=== PATIENT | female | born 1985 | race Caucasian/White ===

== ENCOUNTER → 2017-04-07 | Outpatient (CLI) | payer BC ==
[~2017-04-07] MED LIST: ALPR0.5T PO; HYDR-34 PO; LORA0.5T PO; ONDA4TAB11 PO
--- NOTE | 2017-04-07 14:33 | Diagnostic Imaging Report ---
PROCEDURE: US abdomen complete. TECHNIQUE: Multiple real-time grayscale images were obtained over the abdomen in various projections. INDICATION: Right upper quadrant pain. FINDINGS: The pancreas is largely obscured by bowel gas. The liver is fairly homogeneous without focal lesion seen. There is hepatopetal flow in the portal vein. The CBD is obscured. The spleen is 11.4 cm in length. The abdominal aorta and IVC, visualized portions, appear unremarkable. The gallbladder demonstrates no stones or wall thickening. No pericholecystic fluid is seen. The right kidney is 8.4 and the left kidney is 8.6 cm in length. No hydronephrosis or focal lesion. There is no ascites or fluid collection identified. Area of palpable lump in the mid abdomen is scanned with no definitive abnormality seen. IMPRESSION: Unremarkable exam. Dictated by: Dictated on workstation # [id number]
== END ==
LOC: RAD 08:21
PROVIDERS: ATTEND Family Medicine
DX: R10.11 Right upper quadrant pain (principal); R10.13 Epigastric pain
CPT/HCPCS: 76700

== ENCOUNTER → 2018-01-20 | Outpatient (CLI) | payer BC ==
--- NOTE | 2018-01-20 09:43 | Diagnostic Imaging Report ---
INDICATION: Chest tightness and congestion. TIME OF EXAMINATION: 09:56 a.m. COMPARISON: Correlation is made with prior study from 12/16/2013. FINDINGS: The heart size is normal. The pulmonary vascularity is unremarkable. The lungs are clear. No infiltrate, effusion or pneumothorax is detected. IMPRESSION: No acute cardiopulmonary process is detected. Dictated by: Dictated on workstation # [id number]
== END ==
LOC: RAD 09:10
PROVIDERS: ATTEND Family Medicine
DX: J40 Bronchitis, not specified as acute or chronic (principal)
CPT/HCPCS: 71046

== ENCOUNTER → 2018-02-01 | Outpatient (CLI) | payer BC ==
[~2018-02-01] MED LIST changes: +CATHETER FLUSH 10 ML SYR IV PRN; +IOHEXOL 350 MG/ML 150 ML (OMNIPAQUE 350) VIAL IV ONE; +NS 250 ML (IVPB) BAG IV ONE
--- NOTE | 2018-02-01 15:18 | Diagnostic Imaging Report ---
PROCEDURE: CT angiography of the chest with contrast. TECHNIQUE: Multiple contiguous axial images were obtained through the chest after uneventful bolus administration of intravenous contrast. Reconstructed CTA MIP acquisitions were also performed. INDICATION: Chest pain, shortness of breath, chest pressure, symptoms of 6 weeks duration. FINDINGS: There are no intraluminal pulmonary arterial filling defects. There is no finding suggestive of CT angiographic evidence for pulmonary arterial embolus. The thoracic aorta is patent and nonaneurysmal. The lungs are clear. No mass or lymphadenopathy. No effusion or pneumothorax. No acute or suspicious soft tissue or osseous chest wall pathology. The visualized upper abdomen is nonacute. IMPRESSION: Negative for PE or other acute appearing abnormalities. Dictated by: Dictated on workstation # [id number]
== END ==
LOC: RAD 13:37
PROVIDERS: ATTEND Family Medicine
DX: R07.89 Other chest pain (principal); R06.02 Shortness of breath
CPT/HCPCS: 71275

== ENCOUNTER → 2018-09-28 | Outpatient (CLI) | payer BC ==
[~2018-09-28] MED LIST changes: -CATHETER FLUSH 10 ML SYR IV PRN; -IOHEXOL 350 MG/ML 150 ML (OMNIPAQUE 350) VIAL IV ONE; -NS 250 ML (IVPB) BAG IV ONE
--- NOTE | 2018-09-28 21:22 | Diagnostic Imaging Report ---
INDICATION: Lump in the upper-outer left breast as well as right nipple pain. No prior mammograms are available for comparison. 2-D and 3-D bilateral diagnostic mammography was performed with computer-aided detection (CAD) system. FINDINGS: Both breasts are heterogeneously dense, limiting the sensitivity of mammography. No mass or malignant-appearing microcalcifications are seen. Specifically, no abnormality at the area of the BB marker is identified. The axillae are unremarkable. IMPRESSION: No mammographic features suspicious for malignancy are identified. Even so, directed sonographic interrogation of the upper-outer left breast at the area of palpable abnormality as well as the retroareolar right breast is recommended and will be performed today. ACR BI-RADS Category 0: Incomplete. (Needs additional imaging evaluation). Result letter will be mailed to the patient. Note: At least 10% of breast cancer is not imaged by mammography. Dictated by: Dictated on workstation # [id number]
--- NOTE | 2018-09-28 21:25 | Diagnostic Imaging Report ---
INDICATION: Left breast lump and right nipple pain. Correlation is made with diagnostic mammogram earlier the same day. FINDINGS: Sonographic interrogation of the area of lump in the upper-outer left breast was performed. No sonographic abnormality is seen. No solid or cystic mass is identified. In addition, the retroareolar right breast was evaluated. No underlying abnormality is seen. IMPRESSION: No sonographic abnormality is seen. Continued close clinical and self breast exam is recommended to confirm stability. ACR BI-RADS Category 1: Negative. Dictated by: Dictated on workstation # [id number]
== END ==
LOC: RAD 08:30
PROVIDERS: ATTEND Family Medicine
DX: N63.21 Unspecified lump in the left breast, upper outer quadrant (principal)
CPT/HCPCS: 76642; 77066

== ENCOUNTER → 2018-11-06 | Outpatient (CLI) | payer BC ==
--- NOTE | 2018-11-06 12:26 | Diagnostic Imaging Report ---
PROCEDURE: US Thyroid. TECHNIQUE: Multiple real-time grayscale images were obtained of the thyroid in various projections. INDICATION: Right neck swelling. COMPARISON: No prior studies are available for comparison. FINDINGS: The right lobe of the thyroid measures 4.4 x 1.6 x 1.2 cm, and the left lobe measures 3.3 x 1.4 x 1.4 cm. There is a tiny approximately 3 mm cyst in the right lobe. No other thyroid mass is seen. No dominant thyroid mass is seen. Superior to the right lobe of the thyroid at the area of patient's palpable fullness is a lymph node measuring 1.4 x 2.0 x 0.7 cm. This is just lateral to the submandibular gland. No other abnormalities are seen. IMPRESSION: 1. No dominant thyroid mass is identified. 2. Mildly enlarged lymph node superior to the right lobe of the thyroid lateral to the submandibular gland, likely accounting for the area of fullness. Dictated by: Dictated on workstation # [id number]
== END ==
LOC: RAD 11:22
PROVIDERS: ATTEND Family Medicine
DX: R59.0 Localized enlarged lymph nodes (principal)
CPT/HCPCS: 76536

== ENCOUNTER → 2018-11-10 | Outpatient (CLI) | payer BC ==
--- NOTE | 2018-11-10 13:45 | Diagnostic Imaging Report ---
CLINICAL INDICATION: Patient with constant swelling of the neck/jaw area. EXAM: Axial CT scan of the neck soft tissue performed without IV contrast with sagittal and coronal reformatted images. COMPARISON: Ultrasound of the thyroid gland dated 11/06/2018. FINDINGS: Thyroid gland is unremarkable as visualized. There are mildly prominent lymph nodes seen throughout all levels of the neck. The largest lymph node measures 0.8 cm x 1.3 cm in the right level II-A region. Next largest lymph node measures 1.2 cm x 0.7 cm in the left level II-A region. There are small fat-containing slender lymph nodes seen adjacent to the parotid gland. There is no significant lymphadenopathy seen adjacent to the thyroid gland. The salivary glands are unremarkable. The nasopharynx, oropharynx, hypopharynx, and laryngeal soft tissue structures are unremarkable. The visualized upper lung sanchez are clear. There are small posterior vertebral body spurs seen at the C5-C6 and C6-C7 level. There is no significant bony central canal or neural foramen narrowing, as visualized. IMPRESSION: 1: There are mildly prominent lymph nodes seen throughout both sides of the neck which may be reactive. There is no significant abnormality involving the thyroid gland. 2: The remainder of the neck soft tissue structures are unremarkable. Dictated by: Dictated on workstation # [id number]
== END ==
LOC: RAD 12:53
PROVIDERS: ATTEND Family Medicine
DX: R22.1 Localized swelling, mass and lump, neck (principal)
CPT/HCPCS: 70490

== ENCOUNTER → 2018-11-22 | Outpatient (CLI) | payer BC ==
--- NOTE | 2018-11-22 17:06 | Diagnostic Imaging Report ---
INDICATION: Right lower quadrant pain and pelvic pain. TECHNIQUE: Pelvic sonography performed with transabdominal and transvaginal views. FINDINGS: The uterus measured 7.1 x 4.3 x 2.5 cm. The uterus shows no focal lesions. Endometrium measured 7 mm in thickness. The right ovary measured 2.6 x 2.5 x 2.4 cm and appeared normal. Left ovary measured 3.7 x 2.8 x 3.4 cm and appeared normal. There is no free fluid. There was color flow to both ovaries. IMPRESSION: Unremarkable pelvic sonography. Dictated by: Dictated on workstation # [id number]
--- NOTE | 2018-11-22 18:19 | Diagnostic Imaging Report ---
INDICATION: Right lower quadrant pain. FINDINGS: Ultrasound of the right groin was performed in the area of clinical question. There is an apparent lymph node in the right groin measuring 1.8 x 0.6 x 0.8 cm, with a normal-appearing fatty hilum. IMPRESSION: Borderline-prominent lymph node in right groin with normal fatty hilum. No abnormal fluid collection. Dictated by: Dictated on workstation # [id number]
== END ==
LOC: RAD 15:17
PROVIDERS: ATTEND Family Medicine
DX: R10.31 Right lower quadrant pain (principal); R10.2 Pelvic and perineal pain; R59.0 Localized enlarged lymph nodes
CPT/HCPCS: 76830; 76856; 76999

== ENCOUNTER → 2020-10-15 | Outpatient (CLI) | payer BC ==
--- NOTE | 2020-10-15 15:57 | Diagnostic Imaging Report ---
PROCEDURE: CT urinary tract, rule out kidney stone. TECHNIQUE: Multiple contiguous axial images were obtained through the abdomen and pelvis without the use of intravenous contrast. Auto Exposure Controls were utilized during the CT exam to meet ALARA standards for radiation dose reduction. INDICATION: Right flank pain. COMPARISON: No prior studies are available for comparison. FINDINGS: Lung bases are clear. Liver and gallbladder are unremarkable. No biliary ductal dilatation is seen. Pancreas and spleen are unremarkable. No adrenal mass is detected. Kidneys are unremarkable. There are no calculi or hydronephrosis. Aorta is nonaneurysmal. Small and large bowel loops are normal in caliber. Appendix is visualized and unremarkable. No free fluid or fluid collection is seen. No inflammatory changes are identified. The bladder and uterus are unremarkable. IMPRESSION: Unremarkable noncontrast CT of the abdomen and pelvis. No urinary tract calculi or obstruction is seen. There is no CT evidence of acute appendicitis. Dictated by: Dictated on workstation # [id number]
== END ==
LOC: RAD 15:23
PROVIDERS: ATTEND Family Medicine
DX: R10.9 Unspecified abdominal pain (principal)
CPT/HCPCS: 74176

== ENCOUNTER → 2023-05-31 | Outpatient (CLI) | payer BC, OTHER ==
--- NOTE | 2023-05-31 17:06 | Diagnostic Imaging Report ---
HISTORY: Pain and swelling of the right 2nd toe. TECHNIQUE: 3 views of the right 2nd toe. COMPARISON: None FINDINGS: No acute fracture is seen of the right 2nd toe. Alignment appears normal. Joint spaces are preserved. IMPRESSION: 1. No acute osseous abnormality is seen in the right 2nd toe. Dictated by: Dictated on workstation # [id number]
== END ==
LOC: RAD 12:36
PROVIDERS: ATTEND Family Medicine
DX: M79.674 Pain in right toe(s) (principal); M79.89 Other specified soft tissue disorders
CPT/HCPCS: 73660